=== PATIENT | male | born 2000 | race Two or more races ===

== ENCOUNTER → 2024-12-26 | Outpatient (CLI) | payer BC, SELFPAY ==
--- NOTE | 2024-12-26 07:30 | XR_ITS ---
Examination: CT maxillofacial, without intravenous contrast. 2-D sagittal reconstructions. 3-D reconstructions. Date and time of exam:December 26, 2024 at 0746 hours, INDICATIONS: Headaches sleep apnea bilateral ear infections 2 years CTDI: vol (mGy):18.6 DLP: (mGycm):390 Technique: Multiple axial images of maxillofacial region, 3.0 mm slice thickness. 2-D sagittal and coronal reconstructions. 3-D reconstructions. Low dose protocols were performed. One or more of the following dose reduction techniques were used; automated exposure control, adjustment of the mA and/or KV according to patient size, use of iterative reconstruction technique. Findings: Frontal bone frontal sinuses intact Mild mucosal thickening ethmoid air cells Maxillary antra are clear Symmetrical mastoid aeration Negative for acute mastoiditis Negative for otitis externa or otitis media No cerebral mass lesion noted IMPRESSION: Negative for chronic or acute mastoiditis Negative for otitis media or otitis externa.
== END | disposition home or self-care (01) ==
PROVIDERS: Referring Provider Physician Assistant; Visit Provider Physician Assistant
DX: G47.33 Obstructive sleep apnea (adult) (pediatric) (principal); J30.9 Allergic rhinitis, unspecified; J35.1 Hypertrophy of tonsils
CPT/HCPCS: 70486